=== PATIENT | female | born 1995 | race Two or more races ===

== ENCOUNTER → 2016-07-07 | Outpatient (CLI) | payer OTHER ==
--- NOTE | 2016-07-21 23:59 | ECWPNPC ---
PATIENT NAME: ROLANDO ARCE : 1995 GENDER: FEMALE VISIT DATE: 07/07/2016 DISCHARGE DATE: 07/07/16 1635 VISIT LOCKED DATE TIME: PHYSICIAN: ROBY CORRALES RESOURCE: ROBY CORRALES REASON FOR APPOINTMENT 1. 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 BEGAN EXPERIENCING INTERMITTENT SHOOTING PAIN DOWN RIGHT LEG APPROXIMATLEY SIX MONTHS AGO.PAIN IS AGGREVATED BY RUNNING OR PROLONGED SITTING OR STANDING.PAIN IS RELIEVED SOMETIMES BY SITTING.RATING PAIN VAS 4/10.DENIES BOWEL OR BLADDER INCONTINENECE. SCREENING :NO FALLS IN THE PAST YEAR PAIN SCREENING: PATIENT HAS A COMPLAINT OF ACUTE OR CHRONIC PAIN :YES CURRENT MEDICATIONS NONE PAST MEDICAL HISTORY NO MEDICAL HISTORY. ALLERGIES N.K.D.A. SURGICAL HISTORY WISDOM TEET 03/2015 FAMILY HISTORY FATHER: ALIVE 50 YRS MOTHER: ALIVE 49 YRS SOCIAL HISTORY GENERAL: OCCUPATION: ACTIVE . EXERCISE: DAILY. MARITAL STATUS: SINGLE. ADVANCED DIRECTIVES HEALTH CARE PROXY?NO WOULD YOU LIKE MORE INFORMATION?NO DO YOU HAVE A DNR?NO WOULD YOU LIKE MORE INFORMATION?NO LIVING WILL?NO WOULD YOU LIKE MORE INFORMATION?NO POWER OF REGISTERED DIETICIAN?NO WOULD YOU LIKE MORE INFORMATION?NO PT ORIENTED TO UNIT AND SURROUNDINGS. REVIEW OF SYSTEMS CONSTITUTIONAL: ANY CHANGE IN YOUR MEDICAL CONDITION? NO . CHILLS NO . FEVER NO . INFECTION: DO YOU HAVE NEW INFECTIONS? NO . DO YOU HAVE HISTORY OF MRSA? NO . MUSCULOSKELETAL: ANY NEW PATTERNS OF PAIN OR NUMBNESS? YES, LBP AND RECENTLY RADIATING DOWN RIGHT LEG. PT RATES PAIN 6/10 WITH ACTIVITY. . SYTEMIC LUPUS NO . GASTROENTEROLOGY: ANY NEW CHANGE IN BOWEL CONTROL? NO . BARRETTS ESOPHAGUS NO . CIRRHOSIS NO . HEPATITIS NO . LIVER FAILURE NO . ACID REFLUX NO . UNEXPLAINED WEIGHT LOSS NO . GENITOURINARY: ANY NEW CHANGE IN BLADDER CONTROL? NO . IS THERE A CHANCE YOU COULD BE ? NO . HEMATOLOGY/LYMPH: DO YOU TAKE ANY BLOOD THINNERS? (FOR EXAMPLE- COUMADIN, PLAVIX, AGGRENOX, PLATEL, PRADAXA, OR XARELTO) NO . WHEN WAS YOUR LAST DOSE? DATE: TIME: . LOW PLATELET COUNT NO . SICKLE CELL DISEASE NO . VON WILLIEBRANDS NO . FACTOR V LEIDEN NO . THALLASEMIA NO . ANEMIA NO . EASY BRUISING NO . NEUROLOGY: HAVE YOU FALLEN IN THE PAST 6 MONTHS? YES, SLIPPED AND FELL ON ICE . ANY NEW EXTREMITY NUMBNESS OR WEAKNESS? NO . HEAD INJURY NO . DEMENTIA NO . CEREBRAL PALSY NO . MULTIPLE SCLEROSIS NO . DIZZINESS NO . HEADACHE NO . STROKES NO . VERTIGO NO . CARDIOLOGY: DO YOU HAVE A PACEMAKER OR DEFIBRILLATOR? NO . ANGINA NO . HEART ATTACK NO . HEART SURGERY NO . CONGESTIVE HEART FAILURE/FLUID OVERLOAD NO . CHEST PAIN NO . HIGH BLOOD PRESSURE NO . IRREGULAR HEART BEAT NO . RESPIRATORY: HAVE YOU BEEN SICK IN THE PAST WEEK? NO . FEVER NO . FLU LIKE SYMPTOMS? NO . CPAP NO . BYPAP NO . ASTHMA NO . EMPHYSEMA NO . CHRONIC LUNG DISEASES NO . SHORTNESS OF BREATH ON EXERTION NO . COUGH NO . SNORING NO . INTEGUMENTARY: DO YOU HAVE ANY RASHES OR OPEN SORES? NO . ALLERGIC/IMMUNO: ARE YOU ALLERGIC TO SHELLFISH OR IV DYE? NO . ANY NEW ALLERGIES? NO . PSYCHIATRIC: DO YOU HAVE THOUGHTS OF HURTING YOURSELF OR SOMEONE ELSE? NO . ARE YOU ABUSED, NEGLECTED, OR IN AN UNSAFE ENVIRONMENT? NO . ENDOCRINOLOGY: ARE YOU DIABETIC? NO . THYROID DISORDER NO . OTHER: DO YOU NEED ANY PRESCRIPTIONS? NO . IF YES, PLEASE LIST: ____ . ANY NEW PROBLEMS WITH YOUR MEDICATIONS? NO . WHEN DID YOU LAST EAT? ____ . WHEN DID YOU LAST DRINK? ____ . WHAT DID YOU LAST DRINK? ____ . NAME OF PERSON DRIVING YOU HOME? ____ . DO YOU HAVE ANY OTHER QUESTIONS OR CONCERNS NO . REVIEWED BY: PROVIDER: ROBY LARA . VITAL SIGNS WT 152..0, HT 60 IN, BMI 26 INDEX, BP 124/74 MM HG, HR 62 /MIN, RR 16 /MIN, TEMP 98.5 F, OXYGEN SAT % 99%, SAFE IN ENV? (Y/N) Y, NA INITIALS SC 15:45, REVIEWED BY: EM. EXAMINATION GENERAL EXAMINATION: GENERAL APPEARANCE:WELL DEVELOPED AND WELL NOURISHED. PSYCHAFFECT NORMAL. LUNGS:LUNG JARA ARE CLEAR TO AUSCULTATION BILATERALLY. GOOD MOVEMENT OF AIR. HEART:S1, S2 IN A REGULAR RATE AND RHYTHM. NO SIGNIFICANT MURMURS, RUBS OR GALLOPS NOTED. ABDOMEN:NO TENDERNESS TO PALPATION. LUMBAR SPINE/LOWER BACK: PALPATION:VERTEBRAL SPINE TENDERNESS, PARASPINAL TENDERNESS. STRAIGHT LEG RAISING TEST:NEGATIVE BILATERALLY. MOTOR SYSTEM:5/5 BLE. SENSORY EXAM:NORMAL BILATERAL LE. REFLEXES:2/4 AND SYMMETRIC BLE. ASSESSMENTS LUMBAGO OF LUMBOSACARAL REGION WITH SCIATICA - M54.40 (PRIMARY) TREATMENT LUMBAGO OF LUMBOSACARAL REGION WITH SCIATICA [facility] MRI SPINE, L.S. WITHOUT [id number] PROCEDURE CODES FA211 ESTABILISHED PATIENT [facility] FACILITY CHARGE DISPOSITION & COMMUNICATION FOLLOW UP 4 WEEKS (REASON: REVIEW MRI) ELECTRONICALLY SIGNED BY JANE ELLIOTT ON 07/21/2016 AT 01:57 PM EDT DISCLAIMER : THIS IS A VISIT SUMMARY EXTRACTED FROM THE [employer] CHART. IT IS NOT A COPY OF THE [employer] PROGRESS NOTE. SOILA
== END ==
LOC: M PAIN 15:20
PROVIDERS: ATTEND Nurse Practitioner Family
DX: G89.29 Other chronic pain (principal); M54.40 Lumbago with sciatica, unspecified side

== ENCOUNTER → 2016-07-22 | Outpatient (CLI) | payer OTHER ==
--- NOTE | 2016-07-22 14:34 | REP ---
MRI LUMBAR SPINE WITHOUT CONTRAST: HISTORY: Back pain. There is no disc bulge or herniation at the L1-2 through L5-S1 levels. The nerves exit the neural foraminal without compression. An 8 mm cyst is present lateral to the right L1-2 facet joint. The conus medullaris is normal in appearance terminating at the level of the L2 vertebral body. Normal signal intensity is present in the lumbar intervertebral discs and vertebral bodies. IMPRESSION: There is no disc bulge or herniation. Signed by Ray Crowell MD 07/22/2016 02:36 P
== END ==
LOC: M RAD 13:12
PROVIDERS: ATTEND Nurse Practitioner Family
DX: M54.40 Lumbago with sciatica, unspecified side (principal)

== ENCOUNTER → 2016-07-29 | Outpatient (CLI) | payer OTHER ==
--- NOTE | 2016-08-18 01:14 | ECWPNPC ---
PATIENT NAME: ROLANDO ARCE : 1995 GENDER: FEMALE VISIT DATE: 07/29/2016 DISCHARGE DATE: 07/29/16 1042 VISIT LOCKED DATE TIME: PHYSICIAN: ROBY CORRALES RESOURCE: ROBY CORRALES REASON FOR APPOINTMENT 1. REVIEW MRI HISTORY OF PRESENT ILLNESS HISTORY OF PRESENT ILLNESS: HERE FOR F/U AND REVIEW MRI .HISTORY OF CHRONIC LOW BACK PAIN WITH NEW ONSET OF RIGHT LEG RADICULAR SYMPTOMS.MRI SHOWING NO DISC BULGE OR HERNIATION IS SHOWING L1/2 8MM CYST LATERAL RIGHT FACET JOINT.PAIN IS AGGREVATED BY LIFTING OR BENDING.RATING PAIN VAS 7/10.PAIN IS LOCATED ACROSS LOW BACK WITH INTERMITTENT RIGHT LEG SHOOTING PAIN. PAIN THE PATIENT DESCRIBES THE PAIN... FALL RISK SCREENING: SCREENING :NO FALLS IN THE PAST YEAR CURRENT MEDICATIONS NONE PAST MEDICAL HISTORY NO MEDICAL HISTORY. ALLERGIES N.K.D.A. SURGICAL HISTORY WISDOM TEET 03/2015 HOSPITALIZATION/MAJOR DIAGNOSTIC PROCEDURE DENIES PAST HOSPITALIZATION REVIEW OF SYSTEMS CONSTITUTIONAL: ANY CHANGE IN YOUR MEDICAL CONDITION? NO . CHILLS NO . FEVER NO . INFECTION: DO YOU HAVE NEW INFECTIONS? NO . DO YOU HAVE HISTORY OF MRSA? NO . MUSCULOSKELETAL: ANY NEW PATTERNS OF PAIN OR NUMBNESS? NO . GASTROENTEROLOGY: ANY NEW CHANGE IN BOWEL CONTROL? NO . GENITOURINARY: ANY NEW CHANGE IN BLADDER CONTROL? NO . IS THERE A CHANCE YOU COULD BE ? NO . HEMATOLOGY/LYMPH: DO YOU TAKE ANY BLOOD THINNERS? (FOR EXAMPLE- COUMADIN, PLAVIX, AGGRENOX, PLATEL, PRADAXA, OR XARELTO) NO . WHEN WAS YOUR LAST DOSE? DATE: TIME: . NEUROLOGY: HAVE YOU FALLEN IN THE PAST 6 MONTHS? NO . ANY NEW EXTREMITY NUMBNESS OR WEAKNESS? NO . CARDIOLOGY: DO YOU HAVE A PACEMAKER OR DEFIBRILLATOR? NO . RESPIRATORY: HAVE YOU BEEN SICK IN THE PAST WEEK? NO . FEVER NO . FLU LIKE SYMPTOMS? NO . COUGH NO . INTEGUMENTARY: DO YOU HAVE ANY RASHES OR OPEN SORES? NO . ALLERGIC/IMMUNO: ARE YOU ALLERGIC TO SHELLFISH OR IV DYE? NO . ANY NEW ALLERGIES? NO . PSYCHIATRIC: DO YOU HAVE THOUGHTS OF HURTING YOURSELF OR SOMEONE ELSE? NO . ARE YOU ABUSED, NEGLECTED, OR IN AN UNSAFE ENVIRONMENT? NO . ENDOCRINOLOGY: ARE YOU DIABETIC? NO . OTHER: DO YOU NEED ANY PRESCRIPTIONS? NO . IF YES, PLEASE LIST: ____ . ANY NEW PROBLEMS WITH YOUR MEDICATIONS? NO . WHEN DID YOU LAST EAT? ____ . WHEN DID YOU LAST DRINK? ____ . WHAT DID YOU LAST DRINK? ____ . NAME OF PERSON DRIVING YOU HOME? ____ . DO YOU HAVE ANY OTHER QUESTIONS OR CONCERNS NO . REVIEWED BY: PROVIDER: ROBY LARA . VITAL SIGNS WT 150.0 LBS, HT 60 IN, BMI 29.29 INDEX, BP 132/67 MM HG, HR 84 /MIN, RR 16 /MIN, TEMP 98.2 F, OXYGEN SAT % 100%, SAFE IN ENV? (Y/N) Y, NA INITIALS TL 0955, REVIEWED BY: EM. EXAMINATION GENERAL EXAMINATION: GENERAL APPEARANCE:WELL DEVELOPED AND WELL NOURISHED. PSYCHAFFECT NORMAL. LUNGS:LUNG JARA ARE CLEAR TO AUSCULTATION BILATERALLY. GOOD MOVEMENT OF AIR. HEART:S1, S2 IN A REGULAR RATE AND RHYTHM. NO SIGNIFICANT MURMURS, RUBS OR GALLOPS NOTED. ABDOMEN:NO TENDERNESS TO PALPATION. LUMBAR SPINE/LOWER BACK: PALPATION:VERTEBRAL SPINE TENDERNESS, PARASPINAL TENDERNESS.MYOFASCIAL TRIGGER POINTS NOTED OVER LUMBAR PARASPINAL REGION.. STRAIGHT LEG RAISING TEST:NEGATIVE BILATERALLY. MOTOR SYSTEM:5/5 BLE. SENSORY EXAM:NORMAL BILATERAL LE. REFLEXES:2/4 AND SYMMETRIC BLE. ASSESSMENTS LUMBAGO OF LUMBOSACARAL REGION WITH SCIATICA - M54.40 (PRIMARY) MYALGIA - M79.1 TREATMENT LUMBAGO OF LUMBOSACARAL REGION WITH SCIATICA NOTES: TPI BILATERAL LUMBAR PARASPINALS,TRIGGER POINT INJECTION MATERIAL WAS PRINTED, REVIEWED AND GIVEN TO PTPT 2XWK X 6 WEEKS MYOFASCIAL RELEASE/BACK REHABILITATION. PROCEDURE CODES FA211 ESTABILISHED PATIENT [facility] CHARGE DISPOSITION & COMMUNICATION FOLLOW UP 2WK POST (REASON: TPI BILATERAL LUMBAR PARASPINALS) ELECTRONICALLY SIGNED BY JANE ELLIOTT ON 08/17/2016 AT 02:29 PM EDT DISCLAIMER : THIS IS A VISIT SUMMARY EXTRACTED FROM THE [email or web address] CHART. IT IS NOT A COPY OF THE [email or web address] PROGRESS NOTE. SOILA
== END ==
LOC: M PAIN 09:40
PROVIDERS: ATTEND Nurse Practitioner Family
DX: G89.29 Other chronic pain (principal); M54.40 Lumbago with sciatica, unspecified side; M79.1 Myalgia

== ENCOUNTER → 2016-08-17 | Outpatient (CLI) | payer OTHER ==
[~2016-08-17] MED LIST: BUPIVACAINE HCL 0.25% 10 ML VIAL As Ordered ONE; BUPIVACAINE HCL 0.25% 30 ML VIAL As Ordered ONE; MACR100C43 PO; TRIAMCINOLONE ACETONIDE SUSP 40 MG/ML VIAL (J3301) As Ordered ONE; diazePAM 5 MG TAB As Ordered ONE; oxyCODONE 5MG TAB As Ordered ONE; prenatal PO
--- NOTE | 2016-08-31 23:31 | ECWPNPC ---
PATIENT NAME: ROLANDO ARCE : 1995 GENDER: FEMALE VISIT DATE: 08/17/2016 DISCHARGE DATE: 08/17/16 1032 VISIT LOCKED DATE TIME: PHYSICIAN: BUTCH RAMIREZ RESOURCE: BUTCH RAMIREZ REASON FOR APPOINTMENT 1. BILATERAL LUMBAR HISTORY OF PRESENT ILLNESS HISTORY OF PRESENT ILLNESS: PAIN THE PATIENT DESCRIBES THE PAIN... FALL RISK SCREENING: SCREENING :NO FALLS IN THE PAST YEAR CURRENT MEDICATIONS NONE PAST MEDICAL HISTORY LOW BACK PAIN ALLERGIES N.K.D.A. REVIEW OF SYSTEMS REVIEWED BY: PROVIDER: . CONSTITUTIONAL: ANY CHANGE IN YOUR MEDICAL CONDITION? NO . CHILLS NO . FEVER NO . INFECTION: DO YOU HAVE NEW INFECTIONS? NO . DO YOU HAVE HISTORY OF MRSA? NO . MUSCULOSKELETAL: ANY NEW PATTERNS OF PAIN OR NUMBNESS? NO . GASTROENTEROLOGY: ANY NEW CHANGE IN BOWEL CONTROL? NO . GENITOURINARY: ANY NEW CHANGE IN BLADDER CONTROL? NO . IS THERE A CHANCE YOU COULD BE ? NO . HEMATOLOGY/LYMPH: DO YOU TAKE ANY BLOOD THINNERS? (FOR EXAMPLE- COUMADIN, PLAVIX, AGGRENOX, PLATEL, PRADAXA, OR XARELTO) NO . WHEN WAS YOUR LAST DOSE? DATE: TIME: . NEUROLOGY: HAVE YOU FALLEN IN THE PAST 6 MONTHS? NO . ANY NEW EXTREMITY NUMBNESS OR WEAKNESS? NO . CARDIOLOGY: DO YOU HAVE A PACEMAKER OR DEFIBRILLATOR? NO . RESPIRATORY: HAVE YOU BEEN SICK IN THE PAST WEEK? NO . FEVER NO . FLU LIKE SYMPTOMS? NO . COUGH NO . INTEGUMENTARY: DO YOU HAVE ANY RASHES OR OPEN SORES? NO . ALLERGIC/IMMUNO: ARE YOU ALLERGIC TO SHELLFISH OR IV DYE? NO . ANY NEW ALLERGIES? NO . PSYCHIATRIC: DO YOU HAVE THOUGHTS OF HURTING YOURSELF OR SOMEONE ELSE? NO . ARE YOU ABUSED, NEGLECTED, OR IN AN UNSAFE ENVIRONMENT? NO . ENDOCRINOLOGY: ARE YOU DIABETIC? NO . OTHER: DO YOU NEED ANY PRESCRIPTIONS? NO . IF YES, PLEASE LIST: ____ . ANY NEW PROBLEMS WITH YOUR MEDICATIONS? NO . WHEN DID YOU LAST EAT? 08/16/16 1700 . WHEN DID YOU LAST DRINK? 08/16/16 1800 . WHAT DID YOU LAST DRINK? GATORADE . NAME OF PERSON DRIVING YOU HOME? FRIEND, ELIAZAR . DO YOU HAVE ANY OTHER QUESTIONS OR CONCERNS NO . VITAL SIGNS WT 154.2 LBS, HT 60 IN, BMI 30.11 INDEX, BP 115/80 MM HG, HR 79 /MIN, RR 16 /MIN, TEMP 97.4 F, OXYGEN SAT % 98%, NA INITIALS SC 09:18, REVIEWED BY: DAO, LMP: 08/01/16. ASSESSMENTS MYALGIA - M79.1 (PRIMARY) PROCEDURES PN TRIGGER POINT INJECTION WITH STEROIDS PRE PROCEDURE DIAGNOSIS 1. MYALGIA 2. PAIN AT BILATERAL LOWER BACK AREA POST PROCEDURE DIAGNOSIS 1. MYALGIA 2. PAIN AT BILATERAL LOWER BACK AREA PROCEDURE TRIGGER POINT INJECTION AT BILATERAL LOWER BACK AREA SURGEON DR. BUTCH RAMIREZ LIGHTING TECHNICIAN NONE ANESTHESIA LOCAL PRE PROCEDURE NOTE THE PATIENT HAS A HISTORY OF CHRONIC PAIN AT THE RIGHT AND LEFT LOWER BACK AREA. I EVALUATE THE PATIENT AND REVIEWED THE CHART. THERE IS EVIDENCE OF BANDS OF TISSUE WITH RESTRICTION OF MOVEMENT AND PRESENCE OF TRIGGER POINT AT THE AFFECTED AREA. I WENT OVER THE RISKS, ALTERNATIVES, AND BENEFITS ASSOCIATED WITH THIS PROCEDURE. THE PATIENT WOULD LIKE TO PROCEED AND GIVE CONSENT TO PERFORMED THE PROCEDURE. THE PATIENT DENIES UNEXPLAINABLE WEIGHT LOSS, FEVER, CHILLS, OR NEW CHANGES IN URINARY OR BOWEL CONTROL DESCRIPTION OF PROCEDURE THE PATIENT WAS BROUGHT TO THE PROCEDURE ROOM AND PLACED IN THE SITTING POSITION. THE AREA WAS CLEANED WITH ALCOHOL. THE PROCEDURE WAS DONE USING ASEPTIC STERILE TECHNIQUE. I CHECKED LATERALITY AND THE LEVEL WHERE THE PROCEDURE WAS GOING TO BE PERFORMED WITH THE PATIENT AND THE SUPPORTING STAFF AT THE MOMENT OF THE TIME OUT IN THE PROCEDURE ROOM. USING A 25-GAUGE NEEDLE, TRIGGER POINTS WERE INJECTED AT THE RIGHT AND LEFT LOWER BACK AREA WITH A TOTAL OF 40 ML OF BUPIVACAINE 0.25% AND KENALOG 40 MG. THERE WAS NO EVIDENCE OF BLOOD, PARESTHESIA OR CEREBROSPINAL FLUID DURING THE PROCEDURE. THE PATIENT WAS SENT TO THE RECOVERY ROOM. THE PATIENT WAS MOVING THE EXTREMITIES AND DOING WELL. THERE WAS NO COMPLICATION DURING THE PROCEDURE POST PROCEDURE NOTE THE PATIENT WILL BE SEEN IN A FOLLOW UP IN THE NEXT FEW WEEKS. INSTRUCTIONS WERE GIVEN, QUESTIONS WERE ANSWERED, AND THE PATIENT EXPRESSED UNDERSTANDING AND AGREES WITH THE PLAN. I, MICHAEL MARTINEZ, DOCUMENTED THE ABOVE INFORMATION ACTING A SCRIBE FOR DR. RAMIREZ. I, DR. RAMIREZ, HAVE REVIEWED THE ABOVE DOCUMENT, SCRIBED BY MICHAEL MARTINEZ, AND I VERIFY THAT IT IS ACCURATE PROCEDURE CODES 05940 INJ TRIGGER POINT 03/01 [facility] DISPOSITION & COMMUNICATION FOLLOW UP 3 WEEKS ELECTRONICALLY SIGNED BY BUTCH RAMIREZ MD ON 08/31/2016 AT 08:43 PM EDT DISCLAIMER : THIS IS A VISIT SUMMARY EXTRACTED FROM THE [employer] CHART. IT IS NOT A COPY OF THE [employer] PROGRESS NOTE. SOILA
== END ==
LOC: M PAIN 08:40
PROVIDERS: ATTEND Anesthesiology
DX: G89.29 Other chronic pain (principal); M79.1 Myalgia
CPT/HCPCS: 20552; J3301

== ENCOUNTER 2016-09-19 14:44 | Emergency (ER) | payer OTHER ==
[~2016-09-19] VITALS: Ht 175.3 cm; Wt 66.3 kg
[2016-09-19] MEDS ORDERED: prenatal PO (15:09)
[2016-09-19 16:28] LABS: MEAN CORPUSCULAR HEMOGLOBIN 31.6 pg (27.0-33.0); MEAN CORPUSCULAR HGB CONC 34.1 g/dl (32.0-36.5); MEAN CORPUSCULAR VOLUME 92.6 fl (80.0-96.0); RED CELL DISTRIBUTION WIDTH 12.6 % (11.5-14.5); WHITE BLOOD COUNT 5.7 K/mm3 (4.0-10.0)
[2016-09-19] MEDS ORDERED: NITROFURANTOIN (MACROBID) 100 MG CAP PO ONE (18:00)
[2016-09-19] MEDS ORDERED: MACR100C43 PO (18:01)
[2016-09-19 18:09] VITALS: BP 118/66
--- NOTE | 2016-09-19 21:18 | REP ---
FIRST TRIMESTER ULTRASOUND: Real-time sonographic evaluation of the gravid uterus is performed utilizing transabdominal technique. There is a single living intrauterine gestation with estimated gestational age of 8 weeks 2 days, based on a crown-rump length of 18 mm. EDC 04/29/2017. heart rate 153 beats per minute. There is no subchronic hemorrhage. There is trace free fluid in the cul-de-sac. Signed by Boo Syed MD 09/20/2016 01:07 P
== END 2016-09-19 18:18 | disposition home or self-care (01) ==
LOC: M ED 14:44
DX: O20.9 Hemorrhage in early pregnancy, unspecified (principal); O23.41 Unspecified infection of urinary tract in pregnancy, first trimester; Z3A.01 Less than 8 weeks gestation of pregnancy

== ENCOUNTER → 2016-09-23 | Outpatient (CLI) | payer OTHER ==
[~2016-09-23] MED LIST changes: -BUPIVACAINE HCL 0.25% 10 ML VIAL As Ordered ONE; -BUPIVACAINE HCL 0.25% 30 ML VIAL As Ordered ONE; -TRIAMCINOLONE ACETONIDE SUSP 40 MG/ML VIAL (J3301) As Ordered ONE; -diazePAM 5 MG TAB As Ordered ONE; -oxyCODONE 5MG TAB As Ordered ONE
--- NOTE | 2016-10-11 23:54 | ECWPNPC ---
PATIENT NAME: ROLANDO ARCE : 1995 GENDER: FEMALE VISIT DATE: 09/23/2016 DISCHARGE DATE: 09/23/16 1511 VISIT LOCKED DATE TIME: PHYSICIAN: ROBY CORRALES RESOURCE: ROBY CORRALES HISTORY OF PRESENT ILLNESS HISTORY OF PRESENT ILLNESS: HERE FOR POST PROCEDURE F/U.HAD BILATERAL TPI LUMBAR PARASPINAL ON 08-17-16.REPORTS NO IMPROVEMENT AND SOME AGGREVATION IN PAIN POST PROCEDURE.RATING PAIN VAS 4/10.RECENTLY FOUND OUT SHE WAS .PAIN IS ACROSS LOW BACK .DENIES RADICULAR SYMPTOMS.HAS A NORMAL MRI L/S SPINE ON 07-22-16.IT IS SHOWING AN 8MM CYST ATRIGHT L1/2 FACETJOINT.I DONT THINK THIS OF ANY CONCERN BUT PATIENT IS NERVOUS SO I HAVE AGREED TO REFER FOR NEURO CONSULT.PATIENT REPORTS EXTREME DIFFICULTY DOING ADL'S AND HER JOB DUE TO LOW BACK PAIN. PAIN THE PATIENT DESCRIBES THE PAIN... FALL RISK SCREENING: SCREENING :NO FALLS IN THE PAST YEAR CURRENT MEDICATIONS NONE PAST MEDICAL HISTORY LOW BACK PAIN ALLERGIES N.K.D.A. SURGICAL HISTORY WISDOM TEET 03/2015 REVIEW OF SYSTEMS REVIEWED BY: PROVIDER: ROBY HERRERAP . CONSTITUTIONAL: ANY CHANGE IN YOUR MEDICAL CONDITION? YES, PT STATES SHE IS . CHILLS NO . FEVER NO . INFECTION: DO YOU HAVE NEW INFECTIONS? NO . DO YOU HAVE HISTORY OF MRSA? NO . MUSCULOSKELETAL: ANY NEW PATTERNS OF PAIN OR NUMBNESS? NO, PT STATES SHE HAD TPI TO LOWER BACK AREA08/17/16. PT STATES PAIN PRE PROCEDURE WAS 6-7/10, POST PROCEDURE PAIN WAS 10/10 AT END OF DAY. TODAY PT REPORTS PAIN IS 4/10. . GASTROENTEROLOGY: ANY NEW CHANGE IN BOWEL CONTROL? NO . GENITOURINARY: ANY NEW CHANGE IN BLADDER CONTROL? NO . IS THERE A CHANCE YOU COULD BE ? NO . HEMATOLOGY/LYMPH: DO YOU TAKE ANY BLOOD THINNERS? (FOR EXAMPLE- COUMADIN, PLAVIX, AGGRENOX, PLATEL, PRADAXA, OR XARELTO) NO . WHEN WAS YOUR LAST DOSE? DATE: TIME: . NEUROLOGY: HAVE YOU FALLEN IN THE PAST 6 MONTHS? NO . ANY NEW EXTREMITY NUMBNESS OR WEAKNESS? NO . CARDIOLOGY: DO YOU HAVE A PACEMAKER OR DEFIBRILLATOR? NO . RESPIRATORY: HAVE YOU BEEN SICK IN THE PAST WEEK? NO . FEVER NO . FLU LIKE SYMPTOMS? NO . COUGH NO . INTEGUMENTARY: DO YOU HAVE ANY RASHES OR OPEN SORES? NO . ALLERGIC/IMMUNO: ARE YOU ALLERGIC TO SHELLFISH OR IV DYE? NO . ANY NEW ALLERGIES? NO . PSYCHIATRIC: DO YOU HAVE THOUGHTS OF HURTING YOURSELF OR SOMEONE ELSE? NO . ARE YOU ABUSED, NEGLECTED, OR IN AN UNSAFE ENVIRONMENT? NO . ENDOCRINOLOGY: ARE YOU DIABETIC? NO . OTHER: DO YOU NEED ANY PRESCRIPTIONS? NO . IF YES, PLEASE LIST: ____ . ANY NEW PROBLEMS WITH YOUR MEDICATIONS? NO . WHEN DID YOU LAST EAT? ____ . WHEN DID YOU LAST DRINK? ____ . WHAT DID YOU LAST DRINK? ____ . NAME OF PERSON DRIVING YOU HOME? ____ . DO YOU HAVE ANY OTHER QUESTIONS OR CONCERNS NO . VITAL SIGNS WT 143.0 LBS, HT 60 IN, BMI 27.92 INDEX, BP 113/69 MM HG, HR 72 /MIN, RR 16 /MIN, TEMP 97.3 F, OXYGEN SAT % 99%, SAFE IN ENV? (Y/N) Y, NA INITIALS TL 1418, REVIEWED BY: EM. EXAMINATION GENERAL EXAMINATION: GENERAL APPEARANCE:WELL DEVELOPED AND WELL NOURISHED. PSYCHAFFECT NORMAL. LUNGS:LUNG JARA ARE CLEAR TO AUSCULTATION BILATERALLY. GOOD MOVEMENT OF AIR. HEART:S1, S2 IN A REGULAR RATE AND RHYTHM. NO SIGNIFICANT MURMURS, RUBS OR GALLOPS NOTED. ABDOMEN:NO TENDERNESS TO PALPATION. LUMBAR SPINE/LOWER BACK: PALPATION:VERTEBRAL SPINE TENDERNESS, PARASPINAL TENDERNESS.MYOFASCIAL TRIGGER POINTS NOTED OVER LUMBAR PARASPINAL REGION.. STRAIGHT LEG RAISING TEST:NEGATIVE BILATERALLY. MOTOR SYSTEM:5/5 BLE. SENSORY EXAM:NORMAL BILATERAL LE. REFLEXES:2/4 AND SYMMETRIC BLE. ASSESSMENTS MYALGIA - M79.1 (PRIMARY) TREATMENT MYALGIA NOTES: PT 2XWK X 8 WK -MYOFASCIAL RELEASE LUMBAR PARASPINAL BILAT. REFERRAL TO:[facility] ([facility])NEUROLOGICAL SURGERY REASON:EVALUATE RIGHT L1-2 8MM CYST ON OTHERWISE NORMAL MRI-PT IS CONCERNEDAND PROCEDURE CODES FA211 ESTABILISHED PATIENT [facility] CHARGE DISPOSITION & COMMUNICATION FOLLOW UP 2 MONTHS ELECTRONICALLY SIGNED BY JANE ELLIOTT ON 10/11/2016 AT 07:57 PM EDT DISCLAIMER : THIS IS A VISIT SUMMARY EXTRACTED FROM THE [employer] CHART. IT IS NOT A COPY OF THE [employer] PROGRESS NOTE. SOILA
== END ==
LOC: M PAIN 14:45
PROVIDERS: ATTEND Nurse Practitioner Family
DX: G89.29 Other chronic pain (principal); M54.5 Low back pain; M79.1 Myalgia; Z33.1 Pregnant state, incidental

== ENCOUNTER → 2016-12-08 | Outpatient (CLI) | payer OTHER ==
--- NOTE | 2016-12-22 00:33 | ECWPNPC ---
PATIENT NAME: ROLANDO ARCE : 1995 GENDER: FEMALE VISIT DATE: 12/08/2016 DISCHARGE DATE: 12/08/16 1612 VISIT LOCKED DATE TIME: PHYSICIAN: ROBY CORRALES RESOURCE: ROBY CORRALES REASON FOR APPOINTMENT 1. LBP HISTORY OF PRESENT ILLNESS HISTORY OF PRESENT ILLNESS: HERE FOR F/U.HAD BILATERAL TPI LUMBAR PARASPINAL ON 08-17-16.REPORTED NO IMPROVEMENT AND SOME AGGREVATION IN PAIN POST PROCEDURE.RATING PAIN VAS 6/10. SHE IS .PAIN IS ACROSS LOW BACK .DENIES RADICULAR SYMPTOMS.HAS A NORMAL MRI L/S SPINE ON 07-22-16.IT IS SHOWING AN 8MM CYST AT RIGHT L1/2 FACET JOINT.I DONT THINK THIS OF ANY CONCERN BUT PATIENT WAS NERVOUS SO I REFERRED FOR NEURO CONSULT AT HER LAST VISIT BUT SHE DIDNT GO.PATIENT REPORTS EXTREME DIFFICULTY DOING ADL'S AND HER JOB DUE TO LOW BACK PAIN.I ORDERED PT FOR MYOFASCIAL RELEASE AT LAST VISIT BUT PATIENT DIDNT ATTEND AND DOESNT WANT TO PURSUE. PAIN THE PATIENT DESCRIBES THE PAIN... THE PATIENT DESCRIBES THE PAIN... FALL RISK SCREENING: SCREENING :NO FALLS IN THE PAST YEAR CURRENT MEDICATIONS TAKING VITAMINS - (DIS) TABLET 1 TABLET ORALLY DAILY MEDICATION LIST REVIEWED AND RECONCILED WITH THE PATIENT PAST MEDICAL HISTORY LOW BACK PAIN ALLERGIES N.K.D.A. SOCIAL HISTORY GENERAL: TOBACCO USE ARE YOU A:NONSMOKER ALCOHOL SCREENING POINTS1 INTERPRETATIONNEGATIVE RECREATIONAL DRUG USE DRUG USE?NO OCCUPATION: ACTIVE . EXERCISE: DAILY. MARITAL STATUS: SINGLE. MUSLIM [id number] NONE LANGUAGE LANGUAGES SPOKEN:[place] LEARNING BARRIERS / SPECIAL NEEDS BARRIERS TO LEARNING?NO HEARING IMPAIRED?NO VISION IMPAIRED?YES :CORRECTIVE LENSES COGNITIVELY IMPAIRED?NO READINESS TO LEARN?YES LEARNING PREFERENCES?NO LEARNING CAPABILITIES PRESENT?YES EMOTIONAL BARRIERS?NO SPECIAL DEVICES?NO C WEB DEVELOPER NEEDED?NO PAIN CLINIC PFS, CLERGY, PUBLIC HEALTH REFERRALS PFS REFERRAL NEEDED?NO CLERGY REFERRAL NEEDED?NO PUBLIC HEALTH REFERRAL NEEDED?NO HAS THE PATIENT BEEN EDUCATED REGARDING HIS/HER PLAN OF CARE?YES HAS THE PATIENT BEEN EDUCATED REGARDING PAIN, THE RISK FOR PAIN, THE IMPORTANCE OF EFFECTIVE PAIN MANAGEMENT, AND THE PAIN ASSESSMENT PROCESS?YES ADVANCE DIRECTIVES HEALTH CARE PROXY?NO WOULD YOU LIKE MORE INFORMATION?NO DO YOU HAVE A DNR?NO WOULD YOU LIKE MORE INFORMATION?NO LIVING WILL?NO WOULD YOU LIKE MORE INFORMATION?NO POWER OF GROUP SUPERVISOR YARD?NO WOULD YOU LIKE MORE INFORMATION?NO PT ORIENTED TO UNIT AND SURROUNDINGS. REVIEW OF SYSTEMS REVIEWED BY: PROVIDER: ROBY LARA . CONSTITUTIONAL: ANY CHANGE IN YOUR MEDICAL CONDITION? NO . CHILLS NO . FEVER NO . INFECTION: DO YOU HAVE NEW INFECTIONS? NO . DO YOU HAVE HISTORY OF MRSA? NO . MUSCULOSKELETAL: ANY NEW PATTERNS OF PAIN OR NUMBNESS? NO . GASTROENTEROLOGY: ANY NEW CHANGE IN BOWEL CONTROL? NO . GENITOURINARY: ANY NEW CHANGE IN BLADDER CONTROL? NO . IS THERE A CHANCE YOU COULD BE ? YES, 5 MONTHS ALONG . HEMATOLOGY/LYMPH: DO YOU TAKE ANY BLOOD THINNERS? (FOR EXAMPLE- COUMADIN, PLAVIX, AGGRENOX, PLATEL, PRADAXA, OR XARELTO) NO . WHEN WAS YOUR LAST DOSE? DATE: TIME: . NEUROLOGY: HAVE YOU FALLEN IN THE PAST 6 MONTHS? NO . ANY NEW EXTREMITY NUMBNESS OR WEAKNESS? NO . CARDIOLOGY: DO YOU HAVE A PACEMAKER OR DEFIBRILLATOR? NO . RESPIRATORY: HAVE YOU BEEN SICK IN THE PAST WEEK? NO . FEVER NO . FLU LIKE SYMPTOMS? NO . COUGH NO . INTEGUMENTARY: DO YOU HAVE ANY RASHES OR OPEN SORES? NO . ALLERGIC/IMMUNO: ARE YOU ALLERGIC TO SHELLFISH OR IV DYE? NO . ANY NEW ALLERGIES? NO . PSYCHIATRIC: DO YOU HAVE THOUGHTS OF HURTING YOURSELF OR SOMEONE ELSE? NO . ARE YOU ABUSED, NEGLECTED, OR IN AN UNSAFE ENVIRONMENT? NO . ENDOCRINOLOGY: ARE YOU DIABETIC? NO . OTHER: DO YOU NEED ANY PRESCRIPTIONS? NO . IF YES, PLEASE LIST: ____ . ANY NEW PROBLEMS WITH YOUR MEDICATIONS? NO . WHEN DID YOU LAST EAT? ____ . WHEN DID YOU LAST DRINK? ____ . WHAT DID YOU LAST DRINK? ____ . NAME OF PERSON DRIVING YOU HOME? ____ . DO YOU HAVE ANY OTHER QUESTIONS OR CONCERNS NO . VITAL SIGNS WT 141 LBS, HT 60 IN, BMI 27.53 INDEX, BP 124/65 MM HG, HR 86 /MIN, RR 16 /MIN, TEMP 97.4 F, OXYGEN SAT % 100%, SAFE IN ENV? (Y/N) YES, NA INITIALS SC 15:11, REVIEWED BY: MONICA. EXAMINATION GENERAL EXAMINATION: GENERAL APPEARANCE:WELL DEVELOPED AND WELL NOURISHED. PSYCHAFFECT NORMAL. LUNGS:LUNG JARA ARE CLEAR TO AUSCULTATION BILATERALLY. GOOD MOVEMENT OF AIR. HEART:S1, S2 IN A REGULAR RATE AND RHYTHM. NO SIGNIFICANT MURMURS, RUBS OR GALLOPS NOTED. LUMBAR SPINE/LOWER BACK: PALPATION:VERTEBRAL SPINE TENDERNESS, PARASPINAL TENDERNESS.MYOFASCIAL TRIGGER POINTS NOTED OVER LUMBAR PARASPINAL REGION.. MOTOR SYSTEM:5/5 BLE. SENSORY EXAM:NORMAL BILATERAL LE. ASSESSMENTS LUMBAGO OF LUMBOSACARAL REGION WITH SCIATICA - M54.40 (PRIMARY) MYALGIA - M79.1 TREATMENT LUMBAGO OF LUMBOSACARAL REGION WITH SCIATICA NOTES: PATIENT HAS DECIDED NOT TO GO THROUGH WITH NEUROLOGY REFERRAL OR PT ORDERED AT VISIT. PROCEDURE CODES FA211 ESTABILISHED PATIENT [facility] FACILITY CHARGE DISPOSITION & COMMUNICATION FOLLOW UP NO F/U NECESSARY ELECTRONICALLY SIGNED BY JANE ELLIOTT ON 12/21/2016 AT 10:18 AM EDT DISCLAIMER : THIS IS A VISIT SUMMARY EXTRACTED FROM THE [employer] CHART. IT IS NOT A COPY OF THE [employer] PROGRESS NOTE. AUGUSTAD
== END ==
LOC: M PAIN 14:45
PROVIDERS: ATTEND Nurse Practitioner Family
DX: G89.29 Other chronic pain (principal); M54.40 Lumbago with sciatica, unspecified side; M79.1 Myalgia; Z33.1 Pregnant state, incidental; Z79.899 Other long term (current) drug therapy

== ENCOUNTER 2017-04-19 10:18 | Inpatient (IN) | payer OTHER ==
[2017-04-19] MEDS: LR 1,000 ML IV ×2 (11:31→19:31)
[2017-04-19 13:03] LABS: HEMATOCRIT 35.6 % (36.0-47.0); HEMOGLOBIN 12.4 g/dl (12.0-16.0); MEAN CORPUSCULAR HEMOGLOBIN 30.9 pg (27.0-33.0); MEAN CORPUSCULAR HGB CONC 34.8 g/dl (32.0-36.5); MEAN CORPUSCULAR VOLUME 88.8 fl (80.0-96.0); PLATELET COUNT, AUTOMATED 228 10^3/uL (150-450); RED BLOOD COUNT 4.01 10^6/uL (4.00-5.40); RED CELL DISTRIBUTION WIDTH 13.6 % (11.5-14.5); WHITE BLOOD COUNT 6.4 10^3/uL (4.0-10.0)
[2017-04-19 13:05] LABS: AMPHETAMINES URINE REFLEX NEGATIVE (NEGATIVE); BARBITURATES URINE REFLEX NEGATIVE (NEGATIVE); BENZODIAZEPINES URINE REFLEX NEGATIVE (NEGATIVE); CANNABINOIDS URINE REFLEX NEGATIVE (NEGATIVE); COCAINE METABOLITE URINE REFLE NEGATIVE (NEGATIVE); METHADONE URINE REFLEX NEGATIVE (NEGATIVE); OPIATES URINE REFLEX NEGATIVE (NEGATIVE); PHENCYCLIDINE URINE REFLEX NEGATIVE (NEGATIVE)
[2017-04-19] MEDS: PENICILLIN G POTASSIUM IV 5 MU in D5W MINI-BAG PLUS 100 ML IV (14:38)
[2017-04-19] MEDS: LACTATED RINGER'S 1000 ML IV (16:39)
[2017-04-19] MEDS ORDERED: FENTANYL 2MCG/ML ROPIVACAINE 0.2% IN 0.9% NACL 200ML IVBAG As Ordered (16:52)
[2017-04-19] MEDS ORDERED: FENTANYL/ROPIVACAINE/NACL BAG 200 ML EPIDURAL (18:00)
[2017-04-19] MEDS ORDERED: EPIDURAL COMMENT XX (18:00)
[2017-04-19] MEDS ORDERED: NALOXONE INJ 0.4 MG/1 ML VIAL (J2310) IV (18:00)
[2017-04-19] MEDS ORDERED: ePHEDrine SULFATE 25 MG/5 ML(5MG/ML) SYRINGE IV (18:00)
[2017-04-19] MEDS ORDERED: diphenhydrAMINE INJ 50MG/ML VIAL (J1200) IV (18:00)
[2017-04-19] MEDS ORDERED: ONDANSETRON 4MG/2ML VIAL (J2405) IV (18:00)
[2017-04-19] MEDS ORDERED: REFRIGERATOR IV KEYS XX (18:00)
[2017-04-19] MEDS ORDERED: EPIDURAL/PCA KEYS XX (18:00)
[2017-04-19] MEDS: PENICILLIN G POTASSIUM IV 2.5 MU in APPROPRIATE DILUENT 1 EA IV ×2 (18:35→22:30)
[2017-04-19] MEDS ORDERED: OXYTOCIN 30 UNITS IN 0.9% NaCl 500ML IV BAG (J2590) As Ordered (19:07)
[2017-04-19] MEDS: OXYTOCIN DRIP 30 UNITS in APPROPRIATE DILUENT 1 EA IV (22:40)
[2017-04-19] MEDS ORDERED: MOM 30ML SUSPENSION UDC PO (22:45)
[2017-04-19] MEDS ORDERED: MEASLES,MUMPS,RUBELLA VACCINE INJ (MMR-II) (90707) SC (22:45)
[2017-04-19] MEDS ORDERED: ACETAMINOPHEN 500 MG TAB PO (22:45)
[2017-04-19] MEDS ORDERED: RHOGAM 300 MCG (1500 IU) INJ (J2790) IM (22:45)
[2017-04-19] MEDS ORDERED: ANUSOL HC CREAM 30GM TOP (22:45)
[2017-04-19] MEDS: OXYTOCIN INJ 10 UNITS/ML VIAL (J2590) IV (22:45)
[2017-04-19] MEDS ORDERED: METHYLERGONOVINE MALEATE 0.2 MG TAB PO (22:45)
[2017-04-19 23:19] LABS: CORD GAS ABE A -8.3; CORD GAS HCO3 A 21.7 MEQ/L; CORD GAS O2 SAT A 15.9 %; CORD GAS PCO2 A 63.4 mmHg; CORD GAS PH A 7.152 UNITS; CORD GAS PO2 A 13.9 mmHg; CORD GAS TCO2 A 23.6 MEQ/L
[2017-04-19 23:22] LABS: CORD GAS PCO2 V 42.6 mmHg; CORD GAS PH V 7.274 UNITS; CORD GAS PO2 V 21.9 mmHg; CORD GAS TCO2 V 20.6 MEQ/L
[2017-04-19 23:23] LABS: CORD GAS ABE V -7.3; CORD GAS HCO3 V 19.3 MEQ/L; CORD GAS O2 SAT V 42.1 %; CORD GAS SBC V 17.4 MEQ/L
[2017-04-19] MEDS ORDERED: OXYTOCIN INJ 10 UNITS/ML VIAL (J2590) As Ordered (23:39)
[2017-04-20 06:47] LABS: HEMATOCRIT 33.8 % (36.0-47.0); HEMOGLOBIN 11.6 g/dl (12.0-16.0); MEAN CORPUSCULAR HEMOGLOBIN 30.1 pg (27.0-33.0); MEAN CORPUSCULAR HGB CONC 34.3 g/dl (32.0-36.5); MEAN CORPUSCULAR VOLUME 87.8 fl (80.0-96.0); PLATELET COUNT, AUTOMATED 227 10^3/uL (150-450); RED BLOOD COUNT 3.85 10^6/uL (4.00-5.40); RED CELL DISTRIBUTION WIDTH 13.8 % (11.5-14.5); WHITE BLOOD COUNT 14.2 10^3/uL (4.0-10.0)
[2017-04-20] MEDS: PRENATAL VITAMINS CHEWABLE TABLET PO (08:39)
[2017-04-20] MEDS: IBUPROFEN 800 MG TAB PO (11:19)
[2017-04-20] MEDS: DIBUCAINE 1% OINTMENT 30GM TOP (19:48)
[2017-04-20] MEDS: DOCUSATE SODIUM 100 MG CAP PO (19:48)
[2017-04-21] MEDS: PRENATAL VITAMINS CHEWABLE TABLET PO (09:24)
== END 2017-04-21 12:22 | disposition home or self-care (01) | DRG 775 ==
LOC: M LDO 10:18 → M OBS 04-20 01:06 → M LDI 11:25 → M OBS 04-20 14:46
PROVIDERS: Midwife
PROC: 10E0XZZ Delivery of Products of Conception, External Approach (ICD-10-PCS; principal; 2017-04-19)
PROC: 0HQ9XZZ Repair Perineum Skin, External Approach (ICD-10-PCS; 2017-04-19)
DX: O69.82X0 Labor and delivery complicated by other cord entanglement, without compression, not applicable or unspecified (principal); Z37.0 Single live birth; Z3A.38 38 weeks gestation of pregnancy; O99.820 Streptococcus B carrier state complicating pregnancy; O70.0 First degree perineal laceration during delivery